=== PATIENT | male | born 1965 | race Caucasian/White ===

== ENCOUNTER 2023-04-26 07:07 | Outpatient (CLI) | payer BC ==
[2023-04-26] MEDS ORDERED: Iopamidol 300 61% 100 ML VIAL FS ONE (10:31)
== END 2023-04-26 07:08 | disposition home or self-care (01) ==
LOC: CSHCT 07:07
PROVIDERS: ATTEND Family Medicine Sports Medicine
DX: R31.0 Gross hematuria (principal); N32.89 Other specified disorders of bladder; K76.0 Fatty (change of) liver, not elsewhere classified; N13.30 Unspecified hydronephrosis; K57.30 Diverticulosis of large intestine without perforation or abscess without bleeding
CPT/HCPCS: 74178; Q9967

== ENCOUNTER 2025-01-19 08:50 | Outpatient (CLI) | payer BC | END 2025-01-19 08:51 | disposition home or self-care (01) | LOC: CSHRAD 08:50 | PROVIDERS: ATTEND Family Medicine Sports Medicine | DX: M25.551 Pain in right hip (principal) ==